=== PATIENT | male | born 1955 | race Caucasian/White ===

== ENCOUNTER 2016-03-31 01:14 | Emergency (ER) | payer BC ==
[~2016-03-31] VITALS: Ht 162.6 cm; Wt 131.0 kg
[2016-03-31] MEDS ORDERED: ALBUTEROL/IPRATROPIUM 3MG-0.5MG/3ML (DUONEB) NEB VIAL INH ONE (01:30)
[2016-03-31 01:47] LABS: BASOPHILS % (AUTO) 0 % (0-2); EOSINOPHILS # (AUTO) 0.4 10^3uL; EOSINOPHILS % (AUTO) 4 % (0-4); LYMPHOCYTES # (AUTO) 0.8 X10^3; MEAN CORPUSCULAR HGB CONC 32.7 g/dL (31.0-37.0); MEAN PLATELET VOLUME 9.1 FL (6.0-9.5); MONOCYTES % (AUTO) 10 % (3-11); NEUTROPHILS # (AUTO) 7.7 X10^3; NEUTROPHILS % (AUTO) 77 % (51-67); PLATELET COUNT 226 10^3uL (150-450); WHITE BLOOD COUNT 10.05 10^3uL (4.0-11.0)
[2016-03-31 01:48] LABS: MEAN CORPUSCULAR HEMOGLOBIN 31.9 PG (26.0-34.0); MEAN CORPUSCULAR VOLUME 98 FL (80-100)
[2016-03-31 01:54] LABS: ALBUMIN 4.1 g/dL (3.4-5.0); ALKALINE PHOSPHATASE 94 U/L (38-126); ANION GAP 14.1 MEQ/L (3-15); BUN/CREATININE RATIO 22 (10-20); CREATINE KINASE 89 U/L (55-170); TOTAL PROTEIN 7.1 g/dL (6.4-8.5)
--- NOTE | 2016-03-31 02:31 | NUR ---
ASSISTED PT UP TO BSC. PT RETURNED TO CART REAPPLIED DISHROOM ATTENDANT. PT SATS 90% ON 4 LITERS BUT BACK UP TO 94%. PT SOA WITH EXERTION. PT AWAITING LAB AND XRAY RESULTS. WILL CONTINUE TO MONITOR.
[2016-03-31] MEDS ORDERED: cefTRIAXone SODIUM 1,000 MG in SODIUM CHLORIDE 50 ML IV ONE (02:55)
[2016-03-31] MEDS ORDERED: AZITHROMYCIN 250 MG TAB (ZITHROMAX) PO ONE (02:55)
--- NOTE | 2016-03-31 03:30 | NUR ---
PT UP TO BSC. BACK TO CHAIR WHILE IV ANTIBIOTIC INFUSING.
--- NOTE | 2016-03-31 03:45 | NUR ---
PT GIVEN DC INSTRUCTIONS AND SCRIPT. W/C OUT TO CAR ON 4L O2 VIA PORTABLE TANK. PT SWITCHED TO PERSONAL CONCENTRATOR. PT REPORTED BREATHING BETTER AT TIME OF DC.
[2016-03-31 03:52] VITALS: BP 136/72
== END 2016-03-31 03:40 | disposition home or self-care (01) ==
LOC: ED 01:17
DX: J44.0 Chronic obstructive pulmonary disease with (acute) lower respiratory infection (principal); J20.9 Acute bronchitis, unspecified; J44.1 Chronic obstructive pulmonary disease with (acute) exacerbation; Z87.891 Personal history of nicotine dependence
CPT/HCPCS: 36415; 71020; 80053; 82550; 82553; 83880; 84484; 85025; 85610; 85730; 93005; 94640; 96365; 99285; J0696; 93010; 99284

== ENCOUNTER → 2016-04-06 | Outpatient (REF) | payer BC | LOC: LAB 08:19 | PROVIDERS: ATTEND Physician Assistant Medical | DX: J40 Bronchitis, not specified as acute or chronic (principal); J44.1 Chronic obstructive pulmonary disease with (acute) exacerbation | CPT/HCPCS: 87070; 87205 ==

== ENCOUNTER 2016-06-08 08:45 | Emergency (ER) | payer BC ==
[~2016-06-08] VITALS: Ht 162.6 cm; Wt 142.0 kg
--- NOTE | 2016-06-08 08:45 | NUR ---
PT ACTUALLY ARRIVES IN ED PER EMS AT 0840. CL
[2016-06-08] MEDS ORDERED: ROCURONIUM 50 MG/5 ML (ZEMURON) VIAL IV ONE (08:50)
[2016-06-08] MEDS ORDERED: KETAMINE HCL 100 MG/ML 5 ML VIAL ONE (08:50)
[2016-06-08] MEDS ORDERED: fentaNYL 100 MCG/2 ML VIAL ONE ×2 (08:50→09:05)
[2016-06-08] MEDS ORDERED: SODIUM CHLORIDE FLUSH 10 ML SYR ONE (08:50)
--- NOTE | 2016-06-08 08:52 | NUR ---
RT HERE ON PT ARRIVAL FOR ABG'S. PT HX OF BEING IN [facility] RECENTLY FOR RESP ISSUES. 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 CL
--- NOTE | 2016-06-08 08:55 | NUR ---
PT QUICKLY DETERIORATING. DR CARMICHAEL VERBALIZES NEED FOR PT TO BE PREPPED FOR INTUBATION. PT HAS EYES OPEN BUT STOPS RESPONDING. SEE PAPER CHART. CL
[2016-06-08 09:07] LABS: BASOPHILS % (AUTO) 1 % (0-2); EOSINOPHILS # (AUTO) 0.4 10^3uL; EOSINOPHILS % (AUTO) 3 % (0-4); MEAN CORPUSCULAR HEMOGLOBIN 31.2 PG (26.0-34.0); MEAN PLATELET VOLUME 9.4 FL (6.0-9.5); MONOCYTES # (AUTO) 2.1 X10^3; MONOCYTES % (AUTO) 14 % (3-11); NEUTROPHILS # (AUTO) 10.6 X10^3; NEUTROPHILS % (AUTO) 69 % (51-67); PLATELET COUNT 195 10^3uL (150-450); WHITE BLOOD COUNT 15.43 10^3uL (4.0-11.0)
[2016-06-08 09:11] LABS: MEAN CORPUSCULAR VOLUME 101 FL (80-100)
--- NOTE | 2016-06-08 09:12 | Diagnostic Imaging Report ---
INDICATION: Respiratory distress. Comparison with 03/31/2016. FINDINGS: Portable technique with morbid obesity significantly limits detail. There does appear to be bilateral alveolar infiltrates with bilateral pleural effusions. There is marked cardiomegaly. IMPRESSION: Very limited study likely representing congestive failure. Could not exclude superimposed pneumonia. Dictated by: Dictated on workstation # [id number]
[2016-06-08 09:22] LABS: ALBUMIN 4.3 g/dL (3.4-5.0); ANION GAP 14.5 MEQ/L (3-15); CALCULATED IONIZED CALCIUM 4.1 mg/dL (3.8-4.6)
--- NOTE | 2016-06-08 09:55 | NUR ---
PT END TIDAL INCREASES FROM PREVIOUSLY SL. G PASTOR RT & CHEPE RT. DR CARMICHAEL NOTIFIED & VERBAL ORDER NOTED FOR ADDITIONAL SANTIAGO 25MG IV NOW. SAME GIVEN BY THIS RN SLOW PUSH FOLLOWED BY NS FLUSH. CL
--- NOTE | 2016-06-08 10:05 | NUR ---
[facility] PER DR CARMICHAEL
--- NOTE | 2016-06-08 10:09 | NUR ---
RT PUT PT ON VENTILATOR
--- NOTE | 2016-06-08 10:10 | NUR ---
DR CARMICHAEL SPEAKS WITH DR NGUYEN AT [facility] ABOUT PT. DR NGUYEN ACCEPTS PT FOR TRANSFER.
--- NOTE | 2016-06-08 10:12 | Diagnostic Imaging Report ---
INDICATION: Respiratory failure. ET tube placement. Comparison with 8:54 a.m. exam. FINDINGS: ET tube is in good position overlying the tracheal shadow. Tip is at the level of the aortic arch. There has been significant improvement in aeration since previous exam. There are bilateral infiltrates more dense in the right lung base with associated right basilar effusion. IMPRESSION: 1. Satisfactory ET tube placement. 2. Cardiomegaly with persistent infiltrates and right basilar effusion. Dictated by: Dictated on workstation # [id number]
--- NOTE | 2016-06-08 10:15 | NUR ---
PT'S AUNT, AUDREY COSTELLO, NOTIFIED OF PT'S CONDITION AND TRANSFER BY DON. JESSICA
[2016-06-08 10:26] LABS: ABG PH 7.07 (7.35-7.45)
[2016-06-08 10:27] LABS: ABG PCO2 130 mmHg (35-45); ABG PO2 51 mmHg (80-105)
[2016-06-08 10:56] LABS: ABG PCO2 72 mmHg (35-45); ABG PH 7.33 (7.35-7.45); ABG PO2 162 mmHg (80-105)
[2016-06-08 10:57] LABS: ABG OXYGEN SATURATION 99 % (95-98)
[2016-06-08 10:58] LABS: ARTERIAL BLOOD GAS VENT MODE IMV
[2016-06-08 22:01] VITALS: BP 119/61
== END 2016-06-08 11:13 | disposition short-term general hospital (02) ==
LOC: EDUNIT# 08:45 → ED 08:46
DX: J96.00 Acute respiratory failure, unspecified whether with hypoxia or hypercapnia (principal); I50.1 Left ventricular failure, unspecified; N19 Unspecified kidney failure
CPT/HCPCS: 36415; 36600; 71010; 80053; 82803; 83605; 84484; 85025; 87040; 93005; 99285; J3010; 31500; 93010

== ENCOUNTER → 2016-06-08 | Outpatient (CLI) | payer BC ==
[~2016-06-08] MED LIST: ALBU8.5H2 IH; AMLO5TAB4 PO; AMOX875T2 PO; ASP81CT PO; AZIT250T5 PO; AZTH250C PO; CARV12.52 PO; CARV25TA30 PO; CEFD300C PO; CHOL100092 PO; DOXY100T41 PO; FEBU80TA PO; FURO-124 PO; IPRA3AMP11 INH; MULT-954 PO; NEB; TRAM-25 PO; VITA1CAP19 PO
== END ==
LOC: EMS 08:30
PROVIDERS: ATTEND Family Medicine
DX: R06.00 Dyspnea, unspecified (principal)